=== PATIENT | male | born 1930 | race Caucasian/White ===

== ENCOUNTER 2017-08-29 10:42 | Inpatient (IN) | payer OTHER ==
[~2017-08-29] VITALS: Ht 175.3 cm; Wt 93.0 kg
--- NOTE | 2017-08-29 11:02 | ED MVC/FALL/TRAUMA COMPLAINT ---
History of Present Illness General Chief Complaint: Fall Stated Complaint: FALL RIGHT SHOULDER PAIN Source: patient, family, old records, EMS Exam Limitations: no limitations Vital Signs & Intake/Output Vital Signs & Intake/Output Vital Signs Date Time Temp Pulse Resp B/P B/P Pulse O2 O2 Flow FiO2 Mean Ox Delivery Rate 08/29 1505 97.9 58 20 100/60 93 Room Air 08/29 1445 98.0 60 16 100/60 97 Room Air 08/29 1421 96.7 61 18 178/81 94 Room Air 08/29 1047 95 08/29 1045 97.0 65 18 146/82 93 Room Air Allergies Coded Allergies: NO KNOWN ALLERGIES (09/25/11) Triage Note: PT BIBA FROM [facility] AFTER FALLING ONTO HIS LEFT KNEE, ABRASION NOTED THEN ONTO HIS RIGHT SHOULDER, DEFORMITY NOTED. PT DENIES HITTING HIS HEAD. PT STATES SHE IS NOT ON BLOOD THINNERS. PT STATES HE TRIPPED AND FELL. Triage Nurses Notes Reviewed? yes Onset: Just prior to arrival Duration: minute(s):, constant, continues in ED Timing: recent history Severity: severe Injuries/Fall Location: upper extremity, lower extremity Method of Injury: fall Loss of Consciousness: no loss of consciousness Modifying Factors: Worsens With: movement, palpation. HPI: Prior to admission patient tripped and fell onto his left knee and outstretched right arm. He complains of left knee pain and abrasion right shoulder and wrist pain worse with movement palpation. He denies fever chills nausea vomiting diarrhea abdominal pain chest pain shortness breath headache dysuria rash head strike loss consciousness. Past History Travel History Traveled to [place] past 21 day No Medical History Any Pertinent Medical History? see below for history Cardiovascular: hypertension, hyperlipidemia Surgical History Surgical History: non-contributory Psychosocial History Services at Home None What is your primary language Romanian Tobacco Use: Quit >30 days ago ETOH Use: occasional use Illicit Drug Use: marijuana Family History Family History, If Any: FATHER ([place] at age 66 and [place]). Hx Contributory? No Review of Systems Review of Systems Constitutional: Reports: no symptoms. Eyes: Reports: no symptoms. Ears, Nose, Throat, Mouth: Reports: no symptoms. Respiratory: Reports: no symptoms. Cardiovascular: Reports: no symptoms. Gastrointestinal/Abdominal: Reports: no symptoms. Genitourinary: Reports: no symptoms. Musculoskeletal: Reports: see HPI, joint pain. Skin: Reports: see HPI. Neurological/Psychological: Reports: no symptoms. All Other Systems: Reviewed and Negative Physical Exam Physical Exam General Appearance: well developed/nourished, alert, awake, anxious, moderate distress Head: atraumatic, normal appearance Eyes: Bilateral: normal appearance, PERRL, EOMI, normal inspection. Ears, Nose, Throat, Mouth: hearing grossly normal, moist mucous membrane Neck: normal inspection, supple, full range of motion, normal alignment, no midline tenderness Respiratory: normal breath sounds, chest non-tender, no respiratory distress, quiet respiration, lungs clear Cardiovascular: regular rate/rhythm, normal peripheral pulses, norml femoral pulses equa Peripheral Pulses: 4+ carotid (R), 4+ carotid (L) Gastrointestinal: normal bowel sounds, soft, non-tender, no organomegaly Back: normal inspection, normal range of motion Extremities: evidence of injury, bony-point tenderness, limited range of motion, tenderness Neurologic/Psych: no motor/sensory deficits, awake, alert, normal gait, normal mood/affect, scenario writer II-XII nml as tested Skin: normal color, warm/dry, abrasion left knee [place] Coma Score Thanh Coma Score Response Value Best Eye Response (Thanh): open spontaneously 4 Best Verbal Response: oriented 5 Best Motor Response: obeys commands 6 Total 15 Core Measures ACS in differential dx? No CVA/TIA Diagnosis No Sepsis Present: No Sepsis Focused Exam Completed? No Progress Differential Diagnosis: ext injury Plan of Care: Orders Procedure Date/time Status Nothing by Mouth 08/30 B Active CBC WITHOUT DIFFERENTIAL 08/30 0600 Active BASIC ELECTROLYTES PLUS BUN&CR 08/30 0600 Active Regular Diet 08/29 L Complete Regular Diet 08/29 D Complete Weight 08/29 1504 Active Vital Signs 08/29 1504 Active Teach/Educate 08/29 1504 Active Pain Treatment and Response 08/29 1504 Active Nutritional Intake, Monitor 08/29 1504 Active Isolation 08/29 1504 Active Intake & Output 08/29 1504 Active Patient Care Conference 08/29 1504 Active Activity/Ambulation 08/29 1504 Active PT Evaluate & Treat 08/29 1344 Active Pathway - chart 08/29 1344 Active House Staff 08/29 1344 Active Code Status 08/29 1344 Active Patient Data 08/29 1310 Active OXYGEN SETUP (GEN) 08/29 1233 Active Saline Lock 08/29 1233 Active Admit to inpatient 08/29 1233 Active Vital Signs 08/29 1233 Active Activity/Ambulation 08/29 1233 Active Code Status 08/29 1233 Complete Durable Medical Equipment 08/29 1220 Active VIT D 25 HYDROXY 08/29 1106 Complete THYROID STIMULATING HORMONE 08/29 1106 Complete VITAMIN B12 08/29 1106 Complete PROTHROMBIN TIME 08/29 1101 Complete COMPREHENSIVE METABOLIC PANEL 08/29 1101 Complete CBC WITHOUT DIFFERENTIAL 08/29 1101 Complete Intake & Output 08/29 1049 Active Lab Add-on Test 08/29 UNK Active Occupational Tx Eval & Treat 08/29 UNK Active VTE Mechanical Prophylaxis 08/29 UNK Active MISTAKE 08/29 UNK Active FingerStick- Glucose 08/29 UNK Active Current Medications Sig/Dara Start time Last Medication Dose Stop Time Status Admin Enoxaparin Sodium 40 MG DAILY 08/30 0900 AC (Lovenox) Losartan Potassium 50 MG DAILY 08/30 0900 AC (Cozaar) Sertraline HCl 50 MG DAILY 08/30 0900 AC (Zoloft) Levothyroxine Sodium 0.075 MG DAILY AC 08/30 0700 AC (Synthroid) Carvedilol 25 MG BID 08/29 2100 AC (Coreg) Acetaminophen 1,000 MG Q6 08/29 1800 AC (Ofirmev) Atorvastatin Calcium 40 MG 1700 08/29 1700 AC (Lipitor) Insulin Aspart 0 TIDAC 08/29 1700 AC (NovoLOG) Morphine Sulfate 2 MG Q4P PRN 08/29 1345 AC (MORPHINE SULFATE) Sodium Chloride 1,000 ML .[id number] 08/29 1345 AC 08/29 (Normal Saline 0.9%) 08/30 0304 1405 Laboratory Tests 08/29/ 1106: Anion Gap 10, Estimated GFR > 60, BUN/Creatinine Ratio 16.0, Glucose 157 H, Calcium 9.0, Total Bilirubin 0.9, AST 33, ALT 30, Alkaline Phosphatase 69, Total Protein 6.5, Albumin 3.7, Globulin 2.8, Albumin/Globulin Ratio 1.3, Vitamin B12 946 H, 25-OH Vitamin D Total 40.1, TSH 4.080, PT 13.1 H, INR 1.20 H, CBC w Diff NO MAN DIFF REQ, RBC 4.53 L, MCV 91.4, MCH 30.3, MCHC 33.1, RDW 13.9, MPV 7.7, Gran % 73.5, Lymphocytes % 17.4 L, Monocytes % 6.6, Eosinophils % 2.2, Basophils % 0.3, Absolute Granulocytes 4.0, Absolute Lymphocytes 1.0 L, Absolute Monocytes 0.4, Absolute Eosinophils 0.1, Absolute Basophils 0 Diagnostic Imaging: Viewed by Me: Radiology Read. Discussed w/RAD: Radiology Read. Radiology Impression: 1. Abnormal radiographic appearance of the right shoulder showing evidence of proximal right humeral fracture. 2. Abnormal appearance of the right wrist showing features most consistent with triquetral fracture. 3. No radiographic evidence of any left knee fracture. Incidental note is made of chondrocalcinosis and mild soft tissue thickening overlying the patella without any effusion. CXR Impression: No radiographic evidence of any displaced right hemithoracic rib fracture or hemopneumothorax. Previously documented proximal right humeral fracture is reidentified and is unchanged since the radiograph done earlier today. Comments: After initial x-rays patient complained of right anterior lower rib cage pain. echo technician reported difficulties with positioning patient secondary to humerus fracture. Portable chest x-ray ordered. Departure Departure Disposition: STILL A PATIENT Condition: Stable Clinical Impression Primary Impression: Fracture, humerus, proximal Secondary Impressions: Chest wall contusion, Contusion of knee, left, Dementia, Fall due to stumbling, Triquetral fracture Referrals: Ernesto Hernandez MD Departure Forms: Customer Survey General Discharge Information Admission Note Spoke With: Shiv Garsia MD Documentation of Exam: Documentation of any treatments & extenuating circumstances including Concerns Regarding Discharge (functional status, medication knowledge or non-compliance, living conditions, etc.) that warrant an admission rather than observation: IV analgesia transitioning to oral analgesia physical therapy orthopedic evaluation ensure safety medication adjustment continuing care discharge planning.
[2017-08-29 11:22] LABS: ABSOLUTE BASOPHIL COUNT 0 /CUMM (0.0-0.2); ABSOLUTE EOSINOPHIL COUNT 0.1 /CUMM (0.0-0.7); ABSOLUTE MONOCYTE COUNT 0.4 /CUMM (0.10-0.60); BASOPHIL % 0.3 % (0.0-2.0); EOSINOPHIL % 2.2 % (0-5); GRANULOCYTE % 73.5 % (42.2-75.2); HEMATOCRIT 41.4 % (42-52); MEAN CORPUSCULAR HGB 30.3 PG (27.0-31.0); MEAN CORPUSCULAR HGB CONC 33.1 G/DL (33.0-37.0); MEAN CORPUSCULAR VOLUME 91.4 FL (80.0-94.0); MEAN PLATELET VOLUME 7.7 FL (7.4-10.4); PLATELET COUNT 118 /CUMM (130-400); RBC DISTRIBUTION WIDTH 13.9 % (11.5-14.5); RED BLOOD CELL CT 4.53 /CUMM (4.70-6.10); WHITE BLOOD CELL COUNT 5.5 /CUMM (4.8-10.8)
[2017-08-29 11:28] LABS: PT 13.1 SEC (9.4-12.5)
--- NOTE | 2017-08-29 12:12 | RADIOLOGY REPORT ---
EXAMINATION: XR SHOULDER, RIGHT XR WRIST, RIGHT XR KNEE, LEFT CLINICAL INFORMATION: 87-year-old male with history of fall on outstretched hand, complaining of right wrist, right shoulder and left knee pain. COMPARISON: None. TECHNIQUE: 3 views of the right shoulder, 4 views of the right wrist and 4 views of the left knee were obtained. FINDINGS: RIGHT SHOULDER: Moderate diffuse osteopenia is noted involving all the visualized bones. Minimally displaced fractures are present involving the superolateral aspect of the right humeral head. The articular surface does not appear to be involved. The glenohumeral, acromioclavicular alignments are intact. RIGHT WRIST: Moderate diffuse osteopenia is present. Triangular fibrocartilage calcification is seen. Mild osteoarthrosis is noted at the 1st carpometacarpal joint. Osteoarthrosis is also noted. There is a bony fragment identified, best seen on the lateral view projecting over the dorsal surface overlying the carpal bones, most consistent with triquetral fracture. LEFT KNEE: The bony alignment is intact. The cortices are intact. Evidence of chondrocalcinosis is noted. There is no joint effusion present. Minimal soft tissue thickening is noted overlying the patella, may represent soft tissue injury. IMPRESSION: 1. Abnormal radiographic appearance of the right shoulder showing evidence of proximal right humeral fracture. 2. Abnormal appearance of the right wrist showing features most consistent with triquetral fracture. 3. No radiographic evidence of any left knee fracture. Incidental note is made of chondrocalcinosis and mild soft tissue thickening overlying the patella without any effusion.
--- NOTE | 2017-08-29 14:08 | RADIOLOGY REPORT ---
EXAMINATION: XR CHEST, PORTABLE CLINICAL INFORMATION: An 87-year-old male with history of fall, complaining of right-sided rib pain. COMPARISON: Chest done on 01/22/2013. TECHNIQUE: Portable frontal view of the chest was obtained. FINDINGS: Fracture of the right proximal humerus is noted, as was documented on prior radiograph done earlier today. Both lungs are symmetrically expanded, and are clear. The cardiomediastinal silhouette is within normal limits. Specifically, no radiographic evidence of any displaced right hemithoracic rib fracture or hemopneumothorax or lung contusion present. No significant change since 01/22/2013. IMPRESSION: No radiographic evidence of any displaced right hemithoracic rib fracture or hemopneumothorax. Previously documented proximal right humeral fracture is reidentified and is unchanged since the radiograph done earlier today.
--- NOTE | 2017-08-29 14:41 | History & Physical ---
See Addendum General Information and HPI MD Statement: I have seen and personally examined GINO MISHRA and documented this H&P. The patient is a 87 year old M who presented with a patient stated chief complaint of fall fall. Source of Information: patient, family Exam Limitations: clinical condition, confusion History of Present Illness: 87-year-old gentleman with history of hypertension, hyperlipidemia, depression, hypothyroidism, history of CAD presents to [facility] ED after he fell this morning at the [facility] parade. Patient is not the best informant and has difficulty hearing. He is easily reoriented to time and place, but needs frequent clues. This morning at the parade, patient fell onto his right side. He thinks that it was a mechanical fall but at the same time note that his would answer that better! He denies any lightheadedness, dizziness, palpitation prior to the fall. He denies any loss of consciousness or any head strike. Following the fall, ambulance was called and was brought to the ED. He received Toradol as well as IV morphine in the ED. Currently, he he complains of no pain in his right wrist, but does complain of 3 /10 pain nonradiating in his right shoulder. Pain is aggravated with movement. He denies any numbness or tingling in his right extremity. Denies any knee pain. Other systems reviewed and negative, except as above. Patient has not seen a primary care physician for years. Patient ambulates independently at baseline without a walker or cane. He lives with his . Former smoker, occasional drinker, no recreational drug use and opiate tera. Allergies/Medications Allergies: Coded Allergies: NO KNOWN ALLERGIES (09/25/11) Past History Travel History Traveled to [place] past 21 day No Medical History Neurological: dementia Cardiovascular: hypertension, hyperlipidemia Isolation History: Standard Surgical History Surgical History: non-contributory Past Family/Social History Family History Relations & Conditions if any FATHER ([place] at age 66 and [place]). Psychosocial History Services at Home: None ETOH Use: occasional use Illicit Drug Use: marijuana Review of Systems Review of Systems Constitutional: Reports: see HPI. Exam & Diagnostic Data Last 24 Hrs of Vital Signs/I&O Vital Signs Date Time Temp Pulse Resp B/P B/P Pulse O2 O2 Flow FiO2 Mean Ox Delivery Rate 08/29 1505 97.9 58 20 100/60 93 Room Air 08/29 1421 96.7 61 18 178/81 94 Room Air 08/29 1047 95 08/29 1045 97.0 65 18 146/82 93 Room Air Intake & Output 08/29 1600 08/29 0800 08/29 0000 Intake Total 100 Output Total Balance 100 Intake, IV 100 Intake, Oral 0 Patient 190 lb Weight Weight Reported by Patient Measurement Method Physical Exam General Appearance Alert, Oriented X3 (with frequent clues and reorie), Cooperative Skin Multiple nevi of varying sizes, Rene Ders and Rene Kers. HEENT Atraumatic, PERRLA, EOMI, Mucous Membr. moist/pink Cardiovascular Regular Rate, Normal S1, Normal S2 Lungs Clear to Auscultation, Normal Air Movement Abdomen Normal Bowel Sounds, Soft, No Tenderness Extremities RUE- nl pulses, sensation intact, limited ROM. Good specialist icu in rt hand, 5/5 strength in rt hand. Rt shoulder w/o swelling, erythema or tenderness Vascular Normal Pulses, Pulses Symmetrical Last 24 Hrs of Labs/Yovanny: Laboratory Tests 08/29/17 1106: Anion Gap 10, Estimated GFR > 60, BUN/Creatinine Ratio 16.0, Glucose 157 H, Calcium 9.0, Total Bilirubin 0.9, AST 33, ALT 30, Alkaline Phosphatase 69, Total Protein 6.5, Albumin 3.7, Globulin 2.8, Albumin/Globulin Ratio 1.3, PT 13.1 H, INR 1.20 H, CBC w Diff NO MAN DIFF REQ, RBC 4.53 L, MCV 91.4, MCH 30.3, MCHC 33.1, RDW 13.9, MPV 7.7, Gran % 73.5, Lymphocytes % 17.4 L, Monocytes % 6.6, Eosinophils % 2.2, Basophils % 0.3, Absolute Granulocytes 4.0, Absolute Lymphocytes 1.0 L, Absolute Monocytes 0.4, Absolute Eosinophils 0.1, Absolute Basophils 0 Diagnostic Data CXR Results IMPRESSION: No radiographic evidence of any displaced right hemithoracic rib fracture or hemopneumothorax. Previously documented proximal right humeral fracture is reidentified and is unchanged since the radiograph done earlier today. Other Results IMPRESSION: 1. Abnormal radiographic appearance of the right shoulder showing evidence of proximal right humeral fracture. 2. Abnormal appearance of the right wrist showing features most consistent with triquetral fracture. 3. No radiographic evidence of any left knee fracture. Incidental note is made of chondrocalcinosis and mild soft tissue thickening overlying the patella without any effusion. Assessment/Plan Assessment: 87-year-old gentleman here after sustaining a mechanical fall. Patient denies any lightheadedness or dizziness, but he did admit to not eating anything this morning before going to the parade. 1. Fall. Check orthostatics. Check vitamin D and vitamin B12. Supplement as necessary. Normal saline 1 bag. Ortho evaluation. Keep right shoulder immobilizer until evaluation, in sling. Frequent right upper extremity checks for pulses, pallor and paresthesias. PT/OT evaluation. Optimal pain control. Keep n.p.o. after midnight. 2. Hypertension. Continue home medications. 3. Hyperlipidemia. Continue atorvastatin. 4. Hypothyroidism. Continue levothyroxine. Check TSH, since the patient has been seen primary care physician years. 5. History of CAD. Continue aspirin, beta-neel and statin. 6. History of diabetes. NovoLog ISS. Full code. Lovenox for DVT prophylaxis. Consistent carbohydrate diet. As Ranked By This Provider Problem List: 1. Hypertension 2. Hypothyroidism 3. Fall due to stumbling Core Measures/Misc (12/19) Acute Coronary Syndrome ACS Diagnosis: No Congestive Heart Failure Congestive Heart Failure Diagnosis No Cerebrovascular Accident CVA/TIA Diagnosis: No VTE (View Protocol) VTE Risk Factors Acute Medical Illness No Mechanical VTE Prophylaxis d/t N/A MechProphylax Ordered No VTE Pharm Prophylaxis d/t NA PharmProphylax ordered Sepsis (View protocol) Sepsis Present: No If YES complete Sepsis Event Note If YES complete Sepsis Event Note
[2017-08-29 14:45] VITALS: BP 100/60
[2017-08-29 15:05] VITALS: BP 100/60
--- NOTE | 2017-08-29 17:48 | Admission Certification ---
Admission Certification Certification Statement - As attending physician, I certify that at the time of - admission, based on clinical presentation, severity of - symptoms, need for further diagnostic testing and - therapeutic interventions, and risk of adverse outcomes - without in-hospital treatment, in my clinical assessment, - this patient requires an acute hospital stay for a minimum - of two nights or longer. I have also considered psychsocial - factors such as support system, advanced age, financial - issues, cognitive issues, and failed out-patient treatments, - past re-admission history, safety of patient, and lack of - compliance as applicable. Specific rationale supporting this admission is: Fall with right humerus fracture, unable to ambulate, fall risk
--- NOTE | 2017-08-29 19:46 | Cons- Orthopedic ---
General Information and HPI Consulting Request Date of Consult: 08/29/17 Requested By: Shiv Garsia MD Reason for Consult: FALL WITH RIGHT UPPER EXTREMITY INJURY Source of Information: patient, family Exam Limitations: no limitations History of Present Illness: 87 Y/O MALE PMH SIG FOR DM, HTN, HYPERLIPIDEMIA PRESENTED TO THE ER AFTER A TRAUMATIC FALL AT THE [facility]. HE TRIPPED OVER THE CURB AND TRIED TO BREAK HIS FALL WITH HIS RIGHT HAND. HE DENIED ANY DIZZINESS, WEAKNESS OR CHEST PAIN PRIOR TO THE FALL. HE DENIES SYNCOPE AND REMEMBERS ALL EVENTS. HIS WAS THERE AND WITNESSED THE INCIDENT. HE COMPLAINS RIGHT ANTERIOR SHOULDER PAIN AND DISCOMFORT, DENIES ANY NUMBNESS TO THE ARM. HE HAS MINIMAL RIGHT WRIST PAIN. HE SUSTAINED ABRASIONS TO THE RIGHT ELBOW AND RIGHT KNEE. Allergies/Medications Allergies: Coded Allergies: NO KNOWN ALLERGIES (09/25/11) Past History Medical History Neurological: dementia Cardiovascular: hypertension, hyperlipidemia Endocrine: hypothyroidism Surgical History Pertinent Surgical History: non-contributory Family History Relations & Conditions If Any: FATHER (MS at age 66 and DM). Psychosocial History Services at Home: None Smoking Status: Unknown If Ever Smoked ETOH Use: occasional use Illicit Drug Use: marijuana Review of Systems Review of Systems Constitutional: Denies: chills, diaphoresis, fever, malaise, weakness. EENTM: Denies: blurred vision, visual changes. Cardiovascular: Denies: chest pain, edema, palpitations, peripheral edema, syncope. Respiratory: Denies: cough, short of breath. GI: Denies: abdominal pain, nausea, vomiting. Genitourinary: Denies: no symptoms. Musculoskeletal: Reports: joint swelling, muscle pain, muscle stiffness. Denies: back pain, neck pain. Skin: Reports: see HPI. Neurological/Psychological: Reports: cognitive dysfunction, dementia. Denies: ataxia, headache, paresthesia. Hematologic/Endocrine: Reports: bruising. Exam & Diagnostic Data Vital Signs and I&O Vital Signs Date Time Temp Pulse Resp B/P B/P Pulse O2 O2 Flow FiO2 Mean Ox Delivery Rate 08/29 1505 97.9 58 20 100/60 93 Room Air 08/29 1445 98.0 60 16 100/60 97 Room Air 08/29 1421 96.7 61 18 178/81 94 Room Air 08/29 1047 95 08/29 1045 97.0 65 18 146/82 93 Room Air Intake & Output 08/29 1600 08/29 0800 08/29 0000 08/28 1600 08/28 0800 08/28 0000 Intake Total 100 Output Total Balance 100 Intake, IV 100 Intake, Oral 0 Patient 205 lb Weight Weight Reported by Patient Measurement Method Physical Exam: VSS AFEBRILE ALERT AND ORIENTED PRESENT ANSWERING QUESTIONS FOR HE IS AT HIS BASELINE MENTALLY HEAD -AT/NC NECK -SUPPLE WITH AROM CHEST -CAT SYMMETRIC WITHOUT RALES RONCHI OR WHEEZE HEART-RRR WITHOUT MRG ABDOMEN -ROUNDED WITHOUT DISTENSION, NT RIGHT UPPER EXT -ARM WARM WITH GOOD RADIAL PULSE, MOTOR INTACT TENDER OVER ANTERIOR SHOULDER WITH LIMITED ROM RIGHT WRIST - FROM WITH MINIMAL TENDERNESS, SORENESS NONSPECIFIC OVER CARPAL BONES HAND WARM WITH BRISK CAP REFILL CONTUSION ELBOW WITH ABRASION BILATERAL LOWER EXTREMITIES WITH GOOD ROM LEFT KNEE WITH TENDERNESS OVER PATELLA AND ABRASION NOTED CALVES SOFT BILATERALLY AND DISTAL PULSES INTACT Admission Lab Results I reviewed the following labs: Laboratory Tests 08/29 1106 Chemistry Sodium (137 - 145 mmol/L) 142 Potassium (3.5 - 5.1 mmol/L) 4.4 Chloride (98 - 107 mmol/L) 104 Carbon Dioxide (22 - 30 mmol/L) 28 Anion Gap (5 - 16) 10 BUN (9 - 20 mg/dL) 16 Creatinine (0.7 - 1.2 mg/dL) 1.0 Estimated GFR (>60 ml/min) > 60 BUN/Creatinine Ratio (7 - 25 %) 16.0 Glucose (65 - 99 mg/dL) 157 H Calcium (8.4 - 10.2 mg/dL) 9.0 Total Bilirubin (0.2 - 1.3 mg/dL) 0.9 AST (17 - 59 U/L) 33 ALT (21 - 72 U/L) 30 Alkaline Phosphatase (< 127 U/L) 69 Total Protein (6.3 - 8.2 g/dL) 6.5 Albumin (3.5 - 5.0 g/dL) 3.7 Globulin (1.9 - 4.2 gm/dL) 2.8 Albumin/Globulin Ratio (1.1 - 2.2 %) 1.3 Vitamin B12 (239 - 931 pg/mL) 946 H 25-OH Vitamin D Total (30 - 100 ng/ml) 40.1 TSH (0.270 - 4.200 uIU/mL) 4.080 Coagulation PT (9.4 - 12.5 SEC) 13.1 H INR (0.90 - 1.17) 1.20 H Hematology CBC w Diff NO MAN DIFF REQ WBC (4.8 - 10.8 /CUMM) 5.5 RBC (4.70 - 6.10 /CUMM) 4.53 L Hgb (14.0 - 18.0 G/DL) 13.7 L Hct (42 - 52 %) 41.4 L MCV (80.0 - 94.0 FL) 91.4 MCH (27.0 - 31.0 PG) 30.3 MCHC (33.0 - 37.0 G/DL) 33.1 RDW (11.5 - 14.5 %) 13.9 Plt Count (130 - 400 /CUMM) 118 L MPV (7.4 - 10.4 FL) 7.7 Gran % (42.2 - 75.2 %) 73.5 Lymphocytes % (20.5 - 51.1 %) 17.4 L Monocytes % (1.7 - 9.3 %) 6.6 Eosinophils % (0 - 5 %) 2.2 Basophils % (0.0 - 2.0 %) 0.3 Absolute Granulocytes (1.4 - 6.5 /CUMM) 4.0 Absolute Lymphocytes (1.2 - 3.4 /CUMM) 1.0 L Absolute Monocytes (0.10 - 0.60 /CUMM) 0.4 Absolute Eosinophils (0.0 - 0.7 /CUMM) 0.1 Absolute Basophils (0.0 - 0.2 /CUMM) 0 Admission Meds I reviewed the following Meds: Current Medications Sig/Dara Start time Last Medication Dose Stop Time Status Admin Acetaminophen 1,000 MG Q6 08/29 1800 AC 08/29 (Ofirmev) 1723 Atorvastatin Calcium 40 MG 1700 08/29 1700 AC 08/29 (Lipitor) 1723 Carvedilol 25 MG BID 08/29 2100 AC (Coreg) Enoxaparin Sodium 40 MG DAILY 08/30 0900 AC (Lovenox) Insulin Aspart 0 TIDAC 08/29 1700 AC (NovoLOG) Levothyroxine Sodium 0.075 MG DAILY AC 08/30 0700 AC (Synthroid) Losartan Potassium 50 MG DAILY 08/30 0900 AC (Cozaar) Morphine Sulfate 2 MG Q4P PRN 08/29 1345 AC 08/29 (MORPHINE SULFATE) 1722 Sertraline HCl 50 MG DAILY 08/30 0900 AC (Zoloft) Sodium Chloride 1,000 ML .[id number] 08/29 1345 AC 08/29 (Normal Saline 0.9%) 08/30 0304 1405 XRAY SHOWS.... 1. Abnormal radiographic appearance of the right shoulder showing evidence of proximal right humeral fracture. 2. Abnormal appearance of the right wrist showing features most consistent with triquetral fracture. 3. No radiographic evidence of any left knee fracture. Incidental note is made of chondrocalcinosis and mild soft tissue thickening overlying the patella without any effusion. Assessment/Plan Assessment/Plan 87 Y/O MALE SUSTAINED A MECHANICAL FALL PROXIMAL HUMERUS FX -SLING -REMOVE AND REPLACE FOR BATHING AND ROM AT ELBOW LIMITED ROM AT ELBOW, NO PT NEC AT THIS TIME TRIQUETRAL FRACTURE - WRIST SPLINT -REMOVE AND REPLACE FOR BATHING LEFT KNEE CONTUSION - WBAT WITH ASSITANCE THEN AD EDIE MULTIPLE ABRASION -LOCAL WOUND CARE FOLLOW-UP WITH DR. MOTLEY IN OFFICE 7-10 DAYS, PLEASE CALL OFFICE FOR APPOINT. CONSIDER ULTRAM OR MINIMAL NARCOTICS FOR RECOVERY Consult Acknowledgment - Thank you for your consult request.
[2017-08-29 21:34] VITALS: BP 140/80
[2017-08-30 06:20] VITALS: BP 136/74
[2017-08-30 08:17] LABS: ABSOLUTE BASOPHIL COUNT 0 /CUMM (0.0-0.2); ABSOLUTE EOSINOPHIL COUNT 0 /CUMM (0.0-0.7); ABSOLUTE LYMPH COUNT 0.9 /CUMM (1.2-3.4); ABSOLUTE MONOCYTE COUNT 0.5 /CUMM (0.10-0.60); BASOPHIL % 0.3 % (0.0-2.0); EOSINOPHIL % 0 % (0-5); GRANULOCYTE % 83.4 % (42.2-75.2); MEAN CORPUSCULAR HGB 31.1 PG (27.0-31.0); MEAN CORPUSCULAR HGB CONC 34.2 G/DL (33.0-37.0); MEAN CORPUSCULAR VOLUME 90.9 FL (80.0-94.0); RBC DISTRIBUTION WIDTH 14.1 % (11.5-14.5); RED BLOOD CELL CT 3.96 /CUMM (4.70-6.10)
--- NOTE | 2017-08-30 08:38 | PN- Housestaff ---
See Addendum Subjective Follow-up For: Fall resulting in right proximal humerus fracture and right wrist fracture. Subjective: Complains of pain in shoulder with movement. Otherwise pain-free. No fevers or chills overnight. Has baseline dementia. Note oriented to place or time. Review of Systems Constitutional: Reports: see HPI. Objective Last 24 Hrs of Vital Signs/I&O Vital Signs Date Time Temp Pulse Resp B/P B/P Pulse O2 O2 Flow FiO2 Mean Ox Delivery Rate 08/30 0620 98.6 81 18 136/74 91 Room Air 08/29 2134 99.1 75 18 140/80 93 08/29 2056 75 140/80 08/29 1505 97.9 58 20 100/60 93 Room Air 08/29 1445 98.0 60 16 100/60 97 Room Air 08/29 1421 96.7 61 18 178/81 94 Room Air 08/29 1047 95 08/29 1045 97.0 65 18 146/82 93 Room Air Intake & Output 08/30 1600 08/30 0800 08/30 0000 Intake Total 600 1000 Output Total 550 Balance 50 1000 Intake, IV 200 600 Intake, Oral 400 400 Number 0 Bowel Movements Output, Urine 550 Physical Exam General Appearance: Alert, Oriented X3, Cooperative Cardiovascular: Regular Rate, Normal S1, Normal S2 Lungs: Clear to Auscultation, Normal Air Movement Abdomen: Normal Bowel Sounds, Soft, No Tenderness Extremities: left knee with bruises. Limited range of motion right shoulder. Good range of motion right wrist. palpable pulses in all 4 extremities. Current Medications: Current Medications Sig/Dara Start time Last Medication Dose Route Stop Time Status Admin Acetaminophen 1,000 MG Q6 08/29 1800 AC 08/30 IV 527 Acetaminophen 0 .STK-MED ONE 08/29 1455 DC IV Atorvastatin Calcium 40 MG 1700 08/29 1700 AC 08/29 PO 1723 Carvedilol 25 MG BID 08/29 2100 AC 08/29 PO 205 Enoxaparin Sodium 40 MG DAILY 08/30 0900 AC SC Insulin Aspart 0 TIDAC 08/29 1700 AC SC Ketorolac 0 .STK-MED ONE 08/29 1142 DC Tromethamine .ROUTE Ketorolac 15 MG ONCE ONE 08/29 1115 DC 08/29 Tromethamine IV 08/29 1116 1138 Levothyroxine Sodium 0.075 MG DAILY AC 08/30 0700 AC 08/30 PO 0528 Losartan Potassium 50 MG DAILY 08/30 0900 AC PO Morphine Sulfate 2 MG Q4P PRN 08/29 1345 AC 08/29 IV 1722 Morphine Sulfate 0 .STK-MED ONE 08/29 1232 DC .ROUTE Morphine Sulfate 2 MG ONCE ONE 08/29 1230 DC 08/29 IV 08/29 1231 1230 Sertraline HCl 50 MG DAILY 08/30 0900 AC PO Sodium Chloride 1,000 ML .[id number] 08/29 1345 DC 08/29 IV 08/30 0304 1405 Last 24 Hrs of Lab/Yovanny Results Last 24 Hrs of Labs/Mics: Laboratory Tests 08/30/17 0632: Sodium Pending, Potassium Pending, Chloride Pending, Carbon Dioxide Pending, Anion Gap Pending, BUN Pending, Creatinine Pending, BUN/Creatinine Ratio Pending , CBC w Diff Pending, WBC Pending, RBC Pending, Hgb Pending, Hct Pending, MCV Pending, MCH Pending, MCHC Pending, RDW Pending, Plt Count Pending, MPV Pending 08/29/17 1106: Anion Gap 10, Estimated GFR > 60, BUN/Creatinine Ratio 16.0, Glucose 157 H, Calcium 9.0, Total Bilirubin 0.9, AST 33, ALT 30, Alkaline Phosphatase 69, Total Protein 6.5, Albumin 3.7, Globulin 2.8, Albumin/Globulin Ratio 1.3, Vitamin B12 946 H, 25-OH Vitamin D Total 40.1, TSH 4.080, PT 13.1 H, INR 1.20 H, CBC w Diff NO MAN DIFF REQ, RBC 4.53 L, MCV 91.4, MCH 30.3, MCHC 33.1, RDW 13.9, MPV 7.7, Gran % 73.5, Lymphocytes % 17.4 L, Monocytes % 6.6, Eosinophils % 2.2, Basophils % 0.3, Absolute Granulocytes 4.0, Absolute Lymphocytes 1.0 L, Absolute Monocytes 0.4, Absolute Eosinophils 0.1, Absolute Basophils 0 Assessment/Plan Assessment: 87-year-old gentleman here after sustaining a mechanical fall. Patient denies any lightheadedness or dizziness, but he did admit to not eating anything this morning before going to the parade. 1. Fall. Encourage good oral intake as well as hydration. Appreciate Ortho evaluation. Humerus length as well as wrestling. Encourage ambulation, PT/OT evaluation. Frequent right upper extremity checks for pulses, pallor and paresthesias. Patient given controlled with IV Tylenol. Will transition to by mouth Tylenol. 2. Hypertension. Continue home medications. Well controlled. 3. Hyperlipidemia. Continue atorvastatin. 4. Hypothyroidism. Continue levothyroxine. Check TSH, since the patient has been seen primary care physician years. 5. History of CAD. Continue aspirin, beta-neel and statin. 6. History of diabetes. NovoLog ISS. FSG is acceptable ranging from 140-180. Full code. Lovenox for DVT prophylaxis. Consistent carbohydrate diet. Problem List: 1. Contusion of knee, left 2. Chest wall contusion 3. Proximal humerus fracture Pain Ratin Pain Location: Shoulder Pain Goal: Remain pain free Pain Plan: Tylenol and Morphine. Tomorrow's Labs & Rationales: Not needed
[2017-08-30 10:33] LABS: PLATELET COUNT 94 /CUMM (130-400); WHITE BLOOD CELL COUNT 8.4 /CUMM (4.8-10.8)
[2017-08-30 14:03] VITALS: BP 130/64
[2017-08-30 20:20] VITALS: BP 126/80
[2017-08-31 06:20] VITALS: BP 136/78
--- NOTE | 2017-08-31 08:19 | PN- Housestaff ---
See Addendum Subjective Follow-up For: Fall resulting in right proximal humerus fracture and right wrist fracture. Subjective: Complains of pain in shoulder with movement. States had a bad night, "it was a nightmare". Received dose of Haldol last night. No fevers or chills overnight. Has baseline dementia. Not oriented to place or time. Review of Systems Constitutional: Reports: see HPI. Objective Last 24 Hrs of Vital Signs/I&O Vital Signs Date Time Temp Pulse Resp B/P B/P Pulse O2 O2 Flow FiO2 Mean Ox Delivery Rate 08/31 0728 Room Air 08/31 0710 Room Air 08/31 0620 98.6 85 18 136/78 91 Room Air 08/30 2020 98.9 70 18 126/80 94 Room Air 08/30 1936 70 126/80 08/30 1403 98.4 68 20 130/64 93 Room Air 08/30 0948 81 136/74 08/30 0946 81 136/74 Intake & Output 08/31 1600 08/31 0800 08/31 0000 Intake Total 560 730 Output Total 750 Balance -190 730 Intake, IV 200 130 Intake, Oral 360 600 Number 0 Bowel Movements Output, Urine 750 Physical Exam General Appearance: Alert, Oriented X3, Cooperative Cardiovascular: Regular Rate, Normal S1, Normal S2 Lungs: Clear to Auscultation, Normal Air Movement Abdomen: Normal Bowel Sounds, Soft Extremities: No Clubbing, No Cyanosis, No Edema Current Medications: Current Medications Sig/Dara Start time Last Medication Dose Route Stop Time Status Admin Acetaminophen 1,000 MG Q6 08/29 1800 AC 08/31 IV 0606 Atorvastatin Calcium 40 MG 1700 08/29 1700 AC 08/30 PO 1632 Carvedilol 25 MG BID 08/29 2100 AC 08/30 PO 1936 Enoxaparin Sodium 40 MG DAILY 08/30 0900 AC 08/30 SC 0948 Haloperidol 5 MG ONCE ONE 08/30 2315 DC 08/30 IM 08/30 2316 2330 Insulin Aspart 0 TIDAC 08/29 1700 AC 08/30 SC 0948 Levothyroxine Sodium 0.075 MG DAILY AC 08/30 0700 AC 08/31 PO 0606 Losartan Potassium 50 MG DAILY 08/30 0900 AC 08/30 PO 0948 Morphine Sulfate 2 MG Q4P PRN 08/29 1345 AC 08/30 IV 2313 Patient Medication 1 ED ONE ONE 08/30 1830 DC 08/30 Teaching ED 08/30 1831 1828 Polyethylene Glycol 17 GM DAILY 08/31 09 AC PO Senna/Docusate Sodium 1 TAB BID 08/31 09 AC PO Sertraline HCl 50 MG DAILY 08/30 0900 AC 08/30 PO 0946 Assessment/Plan Assessment: 87-year-old gentleman here after sustaining a mechanical fall. Patient denies any lightheadedness or dizziness, but he did admit to not eating anything this morning before going to the parade. 1. Fall. Encourage good oral intake as well as hydration. Appreciate Ortho evaluation. Encourage ambulation, PT/OT evaluation. Pain well controlled with IV Tylenol. Will transition to by mouth Tylenol. * Impending delirium. Needed haldol for agitation last night. Check UA. Treat constipation. Encourage oral intake. Will call family, Orly to come visit, if able. Frequent reorientation. Limit use of Narcs. 2. Hypertension. Continue home medications. Well controlled. 3. Hyperlipidemia. Continue atorvastatin. 4. Hypothyroidism. Continue levothyroxine. 5. History of CAD. Continue aspirin, beta-neel and statin. 6. History of diabetes. NovoLog ISS. FSG is acceptable ranging from 140-180. Full code. Lovenox for DVT prophylaxis. Consistent carbohydrate diet. Problem List: 1. Fracture, humerus, proximal Pain Ratin Pain Location: Shoulder Pain Goal: Pain 4 or less Pain Plan: Tylenol Tomorrow's Labs & Rationales: Not needed
[2017-08-31 14:56] VITALS: BP 142/90
[2017-08-31 22:01] VITALS: BP 160/80
[2017-09-01 06:55] VITALS: BP 152/72
[2017-09-01] MEDS ORDERED: COZAAR50 M1 PO (07:23)
[2017-09-01] MEDS ORDERED: ATORVASTATIN CA40 M1 PO (07:23)
[2017-09-01] MEDS ORDERED: COREG25 M1 PO (07:23)
[2017-09-01] MEDS ORDERED: LEVOTHYROXINE75 MCG PO (07:23)
[2017-09-01] MEDS ORDERED: VALSARTAN320 M1 PO (07:24)
[2017-09-01] MEDS ORDERED: SERTRALINE HCL50 MG PO (07:24)
[2017-09-01] MEDS ORDERED: JANUVIA100 M1 PO (07:25)
[2017-09-01] MEDS ORDERED: TYLENOL325 M1 PO (07:27)
--- NOTE | 2017-09-01 07:31 | Patient Discharge Instructions ---
Discharge Instructions General Discharge Information You were seen/treated for: Mechanical fall Watch for these problems: Low blood pressure Frequent falls Special Instructions: Please follow-up with primary care physician as outpatient. Please stay hydrated, maintain good oral intake. Diet Continue normal diet: Yes Activity Full Activity/No Limits: Yes Acute Coronary Syndrome Inclusion Criteria At DC or during hospital stay patient has or had the following: ACS DIAGNOSIS No Discharge Core Measures Meds if any: Prescribed or Continued at Discharge Meds if any: NOT Prescribed or Continued at Discharge Congestive Heart Failure Inclusion Criteria At DC or during hospital stay patient has or had the following: CHF DIAGNOSIS No Discharge Core Measures Meds if any: Prescribed or Continued at Discharge Meds if any: NOT Prescribed or Continued at Discharge Cerebrovascular accident Inclusion Criteria At DC or during hospital stay patient has or had the following: CVA/TIA Diagnosis No Discharge Core Measures Meds if any: Prescribed or Continued at Discharge Meds if any: NOT Prescribed or Continued at Discharge Venous thromboembolism Inclusion Criteria VTE Diagnosis No VTE Type NONE VTE Confirmed by (Test) NONE Discharge Core Measures - Per Current guidelines, there needs to be overlap - treatment for the first 5 days of Warfarin therapy. - If discharged on Warfarin prior to 5 days of - overlap therapy, the patient will need to be - assessed for post discharge needs including - *Post discharge parental anticoagulation - *Warfarin and/or parental anticoagulation education - *Follow up date to check INR post discharge At least 5 days overlap therapy as Inpatient No Meds if any: Prescribed or Continued at Discharge Note: Overlap Therapy is Warfarin and Anticoagulant Meds if any: NOT Prescribed or Continued at Discharge
--- NOTE | 2017-09-01 07:44 | Discharge Summary ---
See Addendum Visit Information Visit Dates Admission Date: 08/29/17 Discharge Date: 09/01/17 Hospital Course Course Attending Physician: Antonio KING,Andrew Thomas Primary Care Physician: Aubree KING,[facility] Course: 87-year-old gentleman here after sustaining a mechanical fall. Patient denies any lightheadedness or dizziness, but he did admit to not eating anything before going to the parade. At the parade, patient fell onto his right side. He denied any lightheadedness, dizziness, palpitation prior to the fall. He denies any loss of consciousness or any head strike. Following the fall, ambulance was called and was brought to the ED. In the ED, Vital : Afebrile, pulse 58-65, respirations 18, blood pressure 100/60 and saturations 93 on room air. CBCs showed mild anemia and thrombocytopenia. Chemistry panel was unremarkable. Imaging. IMPRESSION: 1. Abnormal radiographic appearance of the right shoulder showing evidence of proximal right humeral fracture. 2. Abnormal appearance of the right wrist showing features most consistent with triquetral fracture. 3. No radiographic evidence of any left knee fracture. Incidental note is made of chondrocalcinosis and mild soft tissue thickening overlying the patella without any effusion. Problem list: 1. Fall. Likely secondary to poor hydration status, accounting for dehydration. While inpatient patient was hydrated with normal saline. He was evaluated by orthopedic service. No surgical intervention was recommended. Recommendations were made to keep proximal humerus in sling for proximal humerus fracture. He also sustained a triquetral fracture, wrist splint was placed and instructions provided to remove and replace for bathing. He was allowed to weight-bear as tolerated on his left knee. Patient will follow-up with Dr. Cortez in his office in 7-10 days. 2. Hypertension. He was continued and will be discharged on his home antihypertensives. 3. Hyperlipidemia. Continue atorvastatin. 4. Hypothyroidism. Continue levothyroxine. TSH level checked and within normal limits. 5. History of CAD. Continue aspirin, beta-neel and statin. 6. History of diabetes. NovoLog ISS was used while inpatient. Patient will be discharged on his home dose of Januvia 100 mg daily. Full code. Lovenox for DVT prophylaxis. Consistent carbohydrate diet. Allergies: Coded Allergies: NO KNOWN ALLERGIES (06/23/12) Disposition Summary Disposition Principal Diagnosis: Proximal right humeral fracture status post mechanical fall. Additional Diagnosis: Triquetral fracture status post mechanical fall. Discharge Disposition: SNF Discharge Instructions General Discharge Information Code Status: Full Code Patient's Diet: Regular diet. Patient's Activity: As tolerated. Follow-Up Instructions/Appts: Please follow-up with primary care physician as an outpatient. Please follow-up with orthopedic Dr. as an outpatient. Medications at Discharge Discharge Medications: Continue taking these medications: Atorvastatin Calcium (Atorvastatin Calcium) 40 MG TABLET 1 Tablet ORAL DAILY Carvedilol (Coreg) 25 MG TABLET 1 Tablet ORAL TWICE DAILY Levothyroxine Sodium (Levothyroxine Sodium) 75 MCG TABLET 1 Tablet ORAL DAILY Sertraline HCl (Sertraline HCl) 50 MG TABLET 1 Tablet ORAL DAILY Valsartan (Valsartan) 320 MG TABLET 1 Tablet ORAL DAILY Sitagliptin Phosphate (Januvia) 100 MG TABLET 1 Tablet ORAL DAILY Start taking the following new medications: Acetaminophen (Tylenol) 325 MG TABLET 650 Milligram ORAL EVERY SIX HOURS NEEDED as needed for Shoulder pain Qty = 60 No Refills Copies To: Diego KING,Tato Storey; Aubree KING,Shun Arias MD Review Statement Documenting Attending: Antonio KING,Andrew Thomas
--- NOTE | 2017-09-01 08:35 | PN- Housestaff ---
See Addendum Subjective Follow-up For: Fall resulting in right proximal humerus fracture and right wrist fracture. Subjective: Offers no complaints. Pleasantly confused, has baseline dementia. Review of Systems Constitutional: Reports: see HPI. Objective Last 24 Hrs of Vital Signs/I&O Vital Signs Date Time Temp Pulse Resp B/P B/P Pulse O2 O2 Flow FiO2 Mean Ox Delivery Rate 09/01 0821 98.4 72 18 152/72 09/01 0817 98.4 72 18 152/72 09/01 0655 98.4 72 18 152/72 93 Room Air 08/31 2201 98.2 70 18 160/80 93 08/31 2104 70 160/80 08/31 1456 97.2 64 20 142/90 95 08/31 1119 Room Air 08/31 1051 67 126/70 08/31 1051 67 126/70 Intake & Output 09/01 1600 09/01 0800 09/01 0000 Intake Total 380 120 Output Total Balance 380 120 Intake, IV 200 Intake, Oral 180 120 Number 1 Bowel Movements Physical Exam General Appearance: Alert, Oriented X3, Cooperative Cardiovascular: Regular Rate, Normal S1, Normal S2 Lungs: Clear to Auscultation, Normal Air Movement Abdomen: Normal Bowel Sounds, Soft, No Tenderness Extremities: No Clubbing, No Cyanosis, No Edema Current Medications: Current Medications Sig/Dara Start time Last Medication Dose Route Stop Time Status Admin Acetaminophen 650 MG Q6P PRN 09/01 0730 AC PO Acetaminophen 1,000 MG Q6 08/29 1800 DC 09/01 IV 0621 Atorvastatin Calcium 40 MG 1700 08/29 1700 AC 08/31 PO 1810 Carvedilol 25 MG BID 08/29 2100 AC 09/01 PO 0817 Enoxaparin Sodium 40 MG DAILY 08/30 0900 AC 09/01 SC 0817 Insulin Aspart 0 TIDAC 08/29 1700 AC 08/30 SC 0948 Levothyroxine Sodium 0.075 MG DAILY AC 08/30 0700 AC 09/01 PO 0621 Losartan Potassium 100 MG DAILY 09/01 0900 AC 09/01 PO 0821 Losartan Potassium 50 MG DAILY 08/30 0900 DC 08/31 PO 1051 Morphine Sulfate 2 MG Q4P PRN 08/29 1345 AC 09/01 IV 0441 Patient Medication 1 ED ONE ONE 08/31 1045 DC 08/31 Teaching ED 08/31 1046 1809 Polyethylene Glycol 17 GM DAILY 08/31 09 AC 09/01 PO 0817 Senna/Docusate Sodium 1 TAB BID 08/31 09 AC 09/01 PO 0817 Sertraline HCl 50 MG DAILY 08/30 09 AC 09/01 PO 0817 Last 24 Hrs of Lab/Yovanny Results Last 24 Hrs of Labs/Mics: Laboratory Tests 08/31/17 1825: Urine Color YEL, Urine Clarity CLEAR, Urine pH 6.0, Ur Specific Kirklin 1.025, Urine Protein 30 H, Urine Ketones TRACE H, Urine Nitrite NEG, Urine Bilirubin NEG, Urine Urobilinogen 1.0, Ur Leukocyte Esterase NEG, Ur Microscopic SEDIMENT EXAMINED, Urine RBC RARE, Urine WBC RARE, Ur Epithelial Cells RARE, Urine Bacteria RARE H, Urine Hemoglobin NEG, Urine Glucose NEG Assessment/Plan Assessment: 87-year-old gentleman here after sustaining a mechanical fall. Patient denies any lightheadedness or dizziness, but he did admit to not eating anything this morning [facility] 1. Fall. Encourage good oral intake as well as hydration. Appreciate Ortho evaluation. Encourage ambulation, PT/OT evaluation. Pain well controlled with IV Tylenol. Will transition to by mouth Tylenol. * Impending delirium. Needed haldol for agitation last night. Check UA. Treat constipation. Encourage oral intake. Will call family, Orly to come visit, if able. Frequent reorientation. Limit use of Narcs. 2. Hypertension. Continue home medications. Increased dose of Losartan to 100 mg (home dose equivalent of Valsartan 320 mg). Will monitor. 3. Hyperlipidemia. Continue atorvastatin. 4. Hypothyroidism. Continue levothyroxine. 5. History of CAD. Continue aspirin, beta-neel and statin. 6. History of diabetes. NovoLog ISS. FSG is acceptable ranging from < 180. Discharge on home med Januvia. Full code. Lovenox for DVT prophylaxis. Consistent carbohydrate diet. Problem List: 1. Hypertension 2. Hypothyroidism 3. Triquetral fracture 4. Fracture, humerus, proximal Pain Ratin Pain Location: PRN Pain Goal: Remain pain free Pain Plan: Tylenol Tomorrow's Labs & Rationales: Not needed.
[2017-09-01 14:32] VITALS: BP 138/74
[2017-09-01 22:00] VITALS: BP 132/72
[2017-09-02 06:00] VITALS: BP 140/82
--- NOTE | 2017-09-02 10:41 | PN- Housestaff ---
See Addendum Subjective Follow-up For: Fall resulting in right proximal humerus fracture and right wrist fracture. Subjective: Offers no complaints. Pleasantly confused, has baseline dementia. Review of Systems Constitutional: Reports: see HPI. Objective Last 24 Hrs of Vital Signs/I&O Vital Signs Date Time Temp Pulse Resp B/P B/P Pulse O2 O2 Flow FiO2 Mean Ox Delivery Rate 09/02 0749 98.3 74 20 140/82 09/02 0749 98.3 74 20 140/82 09/02 0600 98.3 74 20 140/82 91 Room Air 09/01 2200 97.9 65 18 132/72 92 Room Air 09/01 2009 72 150/80 09/01 1432 98.2 68 20 138/74 92 Room Air Intake & Output 09/02 1600 09/02 0800 09/02 0000 Intake Total 200 120 Output Total 200 Balance 200 -80 Intake, Oral 200 120 Output, Urine 200 Physical Exam General Appearance: Alert Cardiovascular: Regular Rate, Normal S1, Normal S2 Lungs: Clear to Auscultation, Normal Air Movement Abdomen: Normal Bowel Sounds, Soft Extremities: No Clubbing, No Cyanosis Current Medications: Current Medications Sig/Dara Start time Last Medication Dose Route Stop Time Status Admin Acetaminophen 650 MG Q6P PRN 09/01 0730 AC PO Atorvastatin Calcium 40 MG 1700 08/29 1700 AC 09/01 PO 1735 Carvedilol 25 MG BID 08/29 2100 AC 09/02 PO 0749 Enoxaparin Sodium 40 MG DAILY 08/30 09 AC 09/02 SC 0749 Insulin Aspart 0 TIDAC 08/29 1700 AC 09/01 SC 1346 Levothyroxine Sodium 0.075 MG DAILY AC 08/30 0700 AC 09/02 PO 0549 Losartan Potassium 100 MG DAILY 09/01 0900 AC 09/02 PO 0749 Morphine Sulfate 2 MG Q4P PRN 08/29 1345 DC 09/01 IV 1216 Oxycodone/ 1 TAB Q4P PRN 09/01 1400 AC 09/02 Acetaminophen PO 0313 Polyethylene Glycol 17 GM DAILY 08/31 09 AC 09/01 PO 0817 Senna/Docusate Sodium 1 TAB BID 08/31 09 AC 09/02 PO 0749 Sertraline HCl 50 MG DAILY 08/30 09 AC 09/02 PO 0749 Assessment/Plan Assessment: 87-year-old gentleman here after sustaining a mechanical fall. Patient denies any lightheadedness or dizziness, but he did admit to not eating anything this morning before going to the parade. 1. Fall. Encourage good oral intake as well as hydration. Appreciate Ortho evaluation. Encourage ambulation, PT/OT evaluation. Pain well controlled with IV Tylenol. Will transition to by mouth Tylenol. * Impending delirium. Needed haldol for agitation last night. Check UA. Treat constipation. Encourage oral intake. Will call family, Orly to come visit, if able. Frequent reorientation. Limit use of Narcs. 2. Hypertension. Continue home medications. Increased dose of Losartan to 100 mg (home dose equivalent of Valsartan 320 mg). Will monitor. 3. Hyperlipidemia. Continue atorvastatin. 4. Hypothyroidism. Continue levothyroxine. 5. History of CAD. Continue aspirin, beta-neel and statin. 6. History of diabetes. NovoLog ISS. FSG is acceptable ranging from < 180. Discharge on home med Januvia. Full code. Lovenox for DVT prophylaxis. Consistent carbohydrate diet. Problem List: 1. Triquetral fracture 2. Fracture, humerus, proximal Pain Ratin Pain Location: Shoulder Pain Goal: Remain pain free Pain Plan: PRN Tomorrow's Labs & Rationales: Not needed
[2017-09-02 10:50] VITALS: BP 140/82
== END 2017-09-02 13:33 | DRG 563 ==
LOC: DELPENDDIS → ERH 10:42 → ERHI 12:23 → 2NA 12:23 → ENRESERV 14:13 → ENTRNSPT 14:26 → EDTRNSPT 14:27 → EDTRNSPTSTS 14:32 → 2NA 14:37 → CMPTRNSPT 15:09 → 2NA 08-30 15:04 → ENPENDDIS 09-01 14:03 → 2NA 09-02 13:33
PROVIDERS: Emergency Medicine; Internal Medicine Hematology & Oncology
DX: S42.201A Unspecified fracture of upper end of right humerus, initial encounter for closed fracture (principal); E11.9 Type 2 diabetes mellitus without complications; D64.9 Anemia, unspecified; F03.90 Unspecified dementia, unspecified severity, without behavioral disturbance, psychotic disturbance, mood disturbance, and anxiety; S62.111A Displaced fracture of triquetrum [cuneiform] bone, right wrist, initial encounter for closed fracture; S20.219A Contusion of unspecified front wall of thorax, initial encounter; S50.01XA Contusion of right elbow, initial encounter; S80.02XA Contusion of left knee, initial encounter; E78.5 Hyperlipidemia, unspecified; F32.9 Major depressive disorder, single episode, unspecified; E03.9 Hypothyroidism, unspecified; I10 Essential (primary) hypertension; I25.10 Atherosclerotic heart disease of native coronary artery without angina pectoris; W19.XXXA Unspecified fall, initial encounter; Y92.410 Unspecified street and highway as the place of occurrence of the external cause; Z79.4 Long term (current) use of insulin; Z87.891 Personal history of nicotine dependence
CPT/HCPCS: 2NAP; 2NASP; 36592; 71045; 73030-RT; 73110-RT; 73562-LT; 81001; 82436; 96374; 97110-GO; 97112-GO; 97116-GO; 97161-GP; 97165-GO; 97530-GO; J0131; J1630; J1650; J1885; J3490